=== PATIENT | female | born 1995 | race Caucasian/White ===

== ENCOUNTER 2021-10-16 13:56 | Emergency (ER) | payer BC, SELFPAY ==
--- NOTE | ~2021-10-16 | CT_ITS ---
EXAMINATION: CT abdomen pelvis w con DATE: 10/16/2021 15:54 INDICATION: epigastric pain, nausea TECHNIQUE: Computed tomography (CT) of the abdomen and pelvis was performed with 100 mL Omnipaque-350 intravenous contrast. Automated exposure control and iterative reconstruction technique were employe d. The dose-length product was 973.89 mGy-cm. COMPARISON: None. FINDINGS: Lower thorax: Minimal dependent atelectasis. Liver: Normal. Biliary/Gallbladder: Mild gallbladder wall edema and minimal pericholecystic fluid. No gallstones det ected. No bile duct dilation. Pancreas: No mass or duct dilation. Spleen: Normal. Adrenals:No mass. Kidneys: No mass, stone, or hydronephrosis. GI tract: Mild antral wall edema as can be seen with gastritis. No small or large bowel dilation. Nor mal appendix. Mesentery/Peritoneum: No ascites, mass, or free air. Retroperitoneum: No mass. Pelvis: Pelvic organs are within normal limits. Soft Tissues: Soft tissues and body wall unremarkable. Bones: No acute osseous finding. IMPRESSION: Mild gallbladder wall edema and pericholecystic fluid could reflect acute cholecystitis in the approp riate clinical context. Mild gastritis. Reviewed, dictated and finalized at location K. IMPRESSION: Mild gallbladder wall edema and pericholecystic fluid could reflect acute adamaris cystitis in the appropriate clinical context. Mild gastritis.
[2021-10-16 14:04] VITALS: BP 118/80; PULSE 79; RESP 16; TEMP 36.5; O2SAT 98
[2021-10-16 14:27] LABS: Alanine Aminotransferase 42 U/L (6-35); Albumin Level 4.5 g/dL (3.5-5.1); Alkaline Phosphatase 79 U/L (38-126); Anion Gap 14 mmol/L (8-16); Aspartate Amino Transferase 36 U/L (14-36); Bilirubin,Total 1.1 mg/dL (0.2-1.3); Blood Urea Nitrogen 13 mg/dL (7-17); Calcium 9.3 mg/dL (8.4-10.2); Carbon Dioxide 27 mmol/L (22-30); Chloride 98 mmol/L (98-107); Estimated CRCL calculation 150 ml/min; Estimated Glomerular Filt Rate > 60; Glucose 120 mg/dL (65-110); Lipase 75 U/L (23-300); Potassium 3.7 mmol/L (3.4-5.0); Sodium 139 mmol/L (137-145)
--- NOTE | 2021-10-16 14:31 | ED.ABDPAIN ---
HPI - Abdominal Pain General Chief Complaint: Abdominal Pain Stated Complaint: abd pain Time Seen by Provider: 10/16/21 14:08 Source: patient Mode of arrival: ambulatory Limitations: no limitations History of Present Illness HPI narrative: Patient is a 25-year-old female who presents the ED with report of abdominal pain. Patient reports having pain from her umbilical region to her epigastric region that began around noon today and has persisted. She reports having similar pain last Sunday which lasted for approximately 48 hours before resolving. Patient has not tried anything for pain today. She does report nausea, but denies vomiting, diarrhea, constipation, dysuria, hematuria, fevers. Related Data Allergies Allergy/AdvReac Type Severity Reaction Status Date / Time No Known Allergies Allergy Verified 10/16/21 13:57 Review of Systems Review of Systems: CONSTITUTIONAL: Denies fever, chills, or sweats. CARDIOVASCULAR: Denies chest pain. RESPIRATORY: Denies cough or dyspnea. GASTROINTESTINAL: Reports upper abdominal pain, nausea. Denies constipation, vomiting, or diarrhea. GENITOURINARY: Denies dysuria or hematuria. All systems reviewed & are unremarkable except as noted in HPI and below PMFSH Past Medical History Medical History No pertinent past medical history Surgical History Surgical History (Updated 10/16/21 @ 14:32 by Dixie George PA-C) No pertinent past surgical history Social History Social History (Updated 10/16/21 @ 14:32 by Dixie George PA-C) Smoking status: Never smoker Exam Narrative: GENERAL: Well appearing, obese, non-toxic, in no acute distress. HEAD: Normocephalic, atraumatic. NECK: Supple. No adenopathy, no masses. RESPIRATORY: Airway patent, respirations nonlabored. Clear to auscultation bilaterally, no rales, rhonchi, wheezing. CARDIOVASCULAR: Regular rate and rhythm without murmurs, rubs, or gallops. Peripheral pulses 2+ and equal bilaterally. ABDOMINAL: Soft, mild tenderness to deep palpation in epigastric region. No focal RUQ or lower abdominal tenderness. Nondistended, no hepatosplenomegaly. Normoactive BS. MUSCULOSKELETAL: Moves all extremities. Strength/ROM intact without gross deformities. SKIN: Warm, dry, normal color. No rashes. NEURO: A&O X3. Speech clear. Cranial nerves II-XII grossly intact. Steady gait. No ataxic movements. PSYCHIATRIC: Appropriate mood and affect. Normal interaction. Course Consultations Consultation #1: Discussed case with Dr. Nuñez, Gen Surgery, advised patient can be discharged home with abx, pain medication and f/u in office. Date: 10/16/21 Vital Signs Vital signs: Vital Signs Temperature 97.7 F 10/16/21 14:04 Pulse Rate 79 10/16/21 14:04 Respiratory Rate 16 10/16/21 14:04 Blood Pressure 118/80 10/16/21 14:04 Pulse Oximetry 98 10/16/21 14:04 Temperature 97.7 F 10/16/21 14:04 Pulse Rate 79 10/16/21 14:04 Respiratory Rate 16 10/16/21 14:04 Blood Pressure 118/80 10/16/21 14:04 Pulse Oximetry 98 10/16/21 14:04 MDM - Abdominal Pain MDM Narrative Medical decision making narrative: Patient presented to ED with several hour history of epigastric abdominal pain. Vital signs stable upon arrival. Afebrile. No leukocytosis - WBC 9.5, no anemia. CMP relatively unremarkable. LFTs WNL. UA suspicious for infection with trace leuk esterase, 7-9 WBC, 2+ bacteria. Moderate squamous cells, could be contamination, but will send for culture. Patient w/o urinary symptoms. CT scan of ABD/pelvis showing findings possibly indicating acute cholecystitis, mild wall edema, minimal pericholecystic fluid, no gallstones. Patient feeling better after IV Tylenol, not having much further pain or tenderness on exam. I discussed case with Dr. Nuñez, general surgery, who advised patient could be discharged home with pain medicine and antibiotics and close follo
[2021-10-16 14:44] LABS: Appearance Urine Slightly Cloudy (Clear); Bilirubin Urine 1+ (Negative); Color Urine Yellow (Yellow); Glucose Urine UA Negative (Negative); Ketones Urine 2+ mg/dL (Negative); Leukocyte Esterase Ur Trace LEU/UL (Negative); Nitrate Urine Negative (Negative); Protein Urine Trace mg/dL (Negative)
[2021-10-16 14:45] LABS: Basophils Percent Auto 0.4 % (0.2-1.2); Eosinophils Absolute Auto 0.2 K/mm3 (0-0.3); Eosinophils Percent Auto 2.4 % (0-4.4); Hematocrit 43.2 % (37.0-47.0); Hemoglobin 13.2 g/dL (12.0-15.0); Immature Granulocyte Absolute 0.03 K/mm3 (0.00-0.031); Immature Granulocyte Percent A 0.3 % (0-0.5); Lymphocytes Percent Auto 27.5 % (18.3-44.2); Mean Corpuscular HGB Conc 30.6 g/dl (32-36); Mean Corpuscular Hemoglobin 29.3 pg (26-34); Mean Platelet Volume 10.9 fl (7.4-10.4); Monocytes Absolute Auto 0.7 K/mm3 (0.1-0.6); Monocytes Percent Auto 7.7 % (2.6-8.5); Neutrophils Absolute Auto 5.8 K/mm3 (1.3-6.7); Neutrophils Percent Auto 61.7 % (45.5-73.1); Platelet Count Result 273 k/mm3 (150-375); Red Cell Distribution Width 13.4 % (11.5-14.5); White Blood Count 9.5 K/mm3 (4.5-10.0)
[2021-10-16 14:50] LABS: Add Urine Microscopic? YES; Blood Urine Trace-Intact (Negative)
[2021-10-16 14:53] LABS: Squamous Epithelial Cell Urine Moderate /hpf (Few)
[2021-10-16 14:54] LABS: Bacteria Urine 2+ /hpf
[2021-10-16 14:55] LABS: RBC Urine 0-2 /hpf (0-2)
[2021-10-16] MEDS: SODIUM CHLORIDE 0.9% IV 1,000 ML 999 ML IV CONT (15:33)
[2021-10-16] MEDS: ONDANSETRON INJ 4 MG/2 ML VIAL IV PUSH (15:34)
[2021-10-16 18:08] VITALS: BP 142/76; PULSE 86; RESP 18; O2SAT 98
== END 2021-10-16 18:19 | disposition home or self-care (01) ==
PROVIDERS: Physician Assistant; Emergency Provider Emergency Medicine
DX: K81.0 Acute cholecystitis (principal); R82.998 Other abnormal findings in urine
CPT/HCPCS: 36415; 74177; 80053; 81001; 81025; 83690; 85025; 87086; 87088; 96365; 96375; 99284; J0131; J2405; J7030; Q9967

== ENCOUNTER 2022-02-15 12:06 | Outpatient (CLI) | payer OTHER, SELFPAY ==
[2022-02-15 12:40] LABS: Alanine Aminotransferase 22 U/L (6-35); Albumin Level 4.7 g/dL (3.5-5.1); Alkaline Phosphatase 69 U/L (38-126); Amylase 56 U/L (30-110); Aspartate Amino Transferase 27 U/L (14-36); Bilirubin,Total 1.3 mg/dL (0.2-1.3); Lipase 40 U/L (23-300)
== END 2022-02-15 12:07 | disposition home or self-care (01) ==
PROVIDERS: Visit Provider Surgery
DX: K80.10 Calculus of gallbladder with chronic cholecystitis without obstruction (principal); Z01.818 Encounter for other preprocedural examination
CPT/HCPCS: 36415; 80076; 82150; 83690; 86850; 86900; 86901

== ENCOUNTER 2022-02-24 02:30 | Day surgery (SDC) | payer OTHER, SELFPAY ==
[2022-02-10 12:30] VITALS: BMI 30.4
--- NOTE | 2022-02-10 12:34 | PC.NURSE ---
Report to the Outpatient Waiting Room, entrance under the green pavilion located off [facility], at time 6:00 on date 02/24/22. Planned Procedure Time: 7:30. Time changes happen often and if your time is changed the preop area will call you the afternoon before. - You and your visitor will be asked to self-screen and do not enter if you have any COVID symptoms. - Only one visitor is requested with a max of two and NO children visitors are allowed at this time. - The patient visitor may be requested to leave or wait in car when not with patient due to distancing restrictions. - A mask is REQUIRED within the hospital. Patients may have clear liquids (water, carbonated beverages, clear teas, apple juice) until 3 hours prior to surgery (4:30) with a maximum of 20 ounces. - No food from midnight until time of surgery Take the following medications with a SIP of water the morning of surgery: N/A Medications to discontinue per physician: N/A Date to take last dose: N/A Please no make-up, nail kyrgyz, hairspray, perfume, deodorant, or body powder the day of surgery. No jewelry (including any body piercings) or valuables the day of surgery, leave them at home. Please take a shower or bath the night before, or the morning of, surgery with an antibacterial soap (HIBICLENS). Wear comfortable, loose fitting clothing. - Jewelry must be removed prior to entering the operating room. Rings and piercings that are not removed may be cut off. - The hospital will not accept responsibility for valuables. - Please leave all valuables, including medications, at home the day of surgery. If you are going home after surgery, a licensed school boat driver must drive you home. - NO public transportation without another adult if you receive anesthesia. - We recommend that an adult stay with you for 24 hours following discharge. - We also recommend that you do not drive, make important decision, drink alcoholic beverages, or take any drugs that were not prescribed by your health care provider for at least 24 hours after your discharge time. Follow any additional instructions given to you from your surgeon. If you or anyone in your household have experienced Covid symptoms in the past week, please notify your surgeon or the nurse liaison at the phone number below for possible testing. Telephone instructions given to PT - CYNTHIA SCHULTZ and asked if any additional questions and then verbalized understanding. Patient advised to call surgeon office or pre surgery nurse liaison [phone] if any additional questions.
[2022-02-24] VITALS (10 sets, daily range): BP systolic 109–127; BP diastolic 65–86; PULSE 62–82; RESP 12–19; TEMP 36.3–36.4; O2SAT 99–100
[2022-02-24] MEDS: ACETAMINOPHEN 500 MG TABLET 1000 MG PO (06:45)
[2022-02-24] MEDS: LACTATED RINGERS 1,000 ML 30 ML IV CONT ×2 (06:47→08:42)
[2022-02-24] MEDS: KETOROLAC 15 MG/ML VIAL (*BKC) IV PUSH (06:47)
--- NOTE | 2022-02-24 06:47 | P.PNAN_ITS ---
Anes - Initial Pre Proc Eval Procedure: Operation Date: 02/24/22 07:30 Proposed Procedures p Robotic Assisted Cholecystectomy - Carley Nuñez MD Date/Time: 02/24/22 06:47 Surgeon: Carley Nuñez MD Pre Op Diagnosis: cholecystitis with stones Patient Data Age: 26 Gender: F Height: 1.73 m Weight: 90.72 kg Allergies Allergy/AdvReac Type Severity Reaction Status Date / Time No Known Allergies Allergy Verified 02/10/22 12:30 Home Medications Medication Instructions Recorded Confirmed Type No Home Medications 02/10/22 02/10/22 History Patient hx anesthesia problems: none Family hx anesthesia problems: none Results Review: All pre-operative results and documents have been reviewed as part of the pre- operative evaluation. [facility] Past Medical History Medical History (Updated 02/24/22 @ 06:47 by Sukumar Rojo MD) No pertinent past medical history Obesity Surgical History Surgical History No pertinent past surgical history Social History Social History Smoking status: Never smoker Alcohol intake: never Substance use: never Substance use type: does not use Living arrangements: with friend(s) Spiritual care concerns: No Anes - Eval Final PreProcedure Day of Procedure 02/24/22 06:47 Patient weight: obese Heart: regular rate and rhythm Lungs: clear to auscultation Airway: Mallampati scale class II Neurological: alert and oriented Last oral intake: >/= 8 hours ASA classification: II Emergent: no Anesthetic plan: proceed Anesthesia type and monitoring: general ETT and standard monitoring Results Review: All pre-operative results and documents have been reviewed as part of the pre- operative evaluation. Informed Consent: The patient's anesthetic plan and its attendant risks and benefits were discussed with the patient/family/POA. Questions were solicited and answers provided to the satisfaction of the patient/family/POA.
[2022-02-24] MEDS: INDOCYANINE GREEN 25 MG VIAL IV PUSH (06:50)
--- NOTE | 2022-02-24 07:20 | PM.IMHP ---
H&P: HPI History of Present Illness Date/Time: 02/24/22 07:20 Chief Complaint: cholecystitis c cholelithiasis Narrative: Palak is a 25 y/o female who presents to the office for evaluation of epigastric pain with associated nausea. She states she has been experiencing these symptoms intermittently for the past few months. Patient was seen at ED on 10/16/21. CT abd/pelvis was performed in the ED and revealed mild gallbladder wall edema and pericholecystic fluid could reflect acute cholecystitis in the appropriate clinical context. Patient states her pain has improved since being seen in the ED. She is still taking the prescribed pain medication and antibiotics. She has been following a low fat diet as directed. Review of Systems Review of Systems: All systems reviewed & are unremarkable except as noted in HPI and below PMFSH Past Medical History Medical History No pertinent past medical history Obesity Surgical History Surgical History No pertinent past surgical history Social History Social History Smoking status: Never smoker Alcohol intake: never Substance use: never Substance use type: does not use Living arrangements: with friend(s) Spiritual care concerns: No Meds Home Medications and Allergies Home Medications Medication Instructions Recorded Confirmed Type No Home Medications 02/10/22 02/24/22 History Allergies Allergy/AdvReac Type Severity Reaction Status Date / Time No Known Allergies Allergy Verified 02/10/22 12:30 Vital Signs Vital Signs - 24 hr 02/24/22 06:10 Temperature 36.4 C L Pulse Rate 78 Respiratory Rate 18 Blood Pressure 127/66 Pulse Oximetry 100 Oxygen Delivery Room Air Exam Const: General: cooperative, comfortable and no acute distress Resp: Auscultation: clear to auscultation bilaterally Cardio: Rate: regular rate Rhythm: regular rhythm GI: GI Palp: No abdominal tenderness, Yes Soft to palpation and No Tenderness to palpation present (GI) Assessment and Plan Assessment and plan (1) Calculous cholecystitis: Code(s): K80.10 - Calculus of gallbladder with chronic cholecystitis without obstruction Status: Acute Assessment and Plan: OR for robotic assisted cholecystectomy
--- NOTE | 2022-02-24 07:25 | WPDHPUPDATE1 ---
History and Physical Update Update Date/Time: 02/24/22 07:25 History and Physical has been reviewed, including an updated exam of the patient. There are NO changes in the patient's condition. Risks, benefits, and alternatives have been discussed and questions answered. Patient agrees to proceed with procedure.
[2022-02-24] MEDS: ceFAZolin 2 GM/D5W 50 ML 2 GM/50 ML BAG IVPB (07:30)
[2022-02-24] MEDS: BUPIVACAINE/EPINEPHRINE 0.5% 30 ML VIAL INFILTRATE (08:24)
--- NOTE | 2022-02-24 08:35 | P.OP_ITS ---
Procedure Note - Detailed Date of Procedure 02/24/22 Pre-op Diagnosis cholecystitis with stones Post-op Diagnosis Same Procedure Performed Robotic assisted cholecystectomy Surgeon Carley Nuñez MD Anesthesia General Indications 26-year-old female presenting to the office status post ED visit for acute cholecystitis, cholelithiasis. Patient to be set up for interval cholecystectomy Findings moderate cholecystitis Description of Procedure The patient was taken to the operating room and placed in the supine position. After adequate induction of general anesthesia, the patient was prepped and draped in the normal sterile fashion. A time-out was then done to verify the patient's identity, as well as the procedure being performed. I began by making a 8 mm incision in the periumbilical region. A Veress needle was then placed in the peritoneal cavity and CO2 gas was insufflated. After adequate pneumoperitoneum was achieved, the Veress needle was removed and a 8 mm Optiview trocar was placed under direct visualization. Once into the abdominal cavity, the introducer was removed and the laparoscope was placed through this trocar site. Under direct visualization, I placed a further 12 mm port in the left mid abdomen and 2 8 mm ports in the right mid abdomen. The robot was then docked to these ports sites. I then went to the console. The gallbladder was then identified and noted to be moderately inflamed. I was able to place a grasper at the dome of the gallbladder and this was retracted up and over the liver. A 2nd retractor was used to grasp the infundibulum and retracted laterally. This allowed visualization and dissection of the triangle of Calot. There were some omental adhesions to the gallbladder and these were taken down with the cautery. I then began dissection around the triangle Calot. I first identified the cystic duct, I was able to visualize the entirety of the duct from its proximal insertion into the gallbladder 2 at the distal junction with the common hepati c/common bile duct junction. I did use the firefly visualization at this point to confirm the anatomy. The proximal cystic duct was then further skeletonized, clipped, and transected. Next I visualized the cystic artery. Again the structure was skeletonized, clipped, and transected. I then again used firefly to confirm anatomy and no aberrant anatomy was noted. I then used the Bovie cautery to take down the peritoneal attachments of the gallbladder off the liver bed. Once the gallbladder specimen was completely detached, an Endo pouch was placed through the 12 mm port site and the gallbladder specimen was placed in the endo-pouch and subsequently removed. I then re-examined the right upper quadrant. Hemostasis was noted in the liver bed and the clips were noted to be in good position on both the duct and the artery. No other pathology was seen in the right upper quadrant. All instruments were then removed and the robot was undocked. I then closed the 12 incision at the fascial level using a Derrick cone and 0 Vicryl suture under direct visualization. The abdomen was then desufflated and all ports were removed. All port sites were then closed with 4- 0 Monocryl subcuticular suture. Dermabond was placed on each was wound. The patient tolerated the procedure well and was extubated in the operating room postop. The patient will now be transferred to the recovery room in stable condition. Estimated Blood Loss 5 Drains No Packing No Pathology Yes Complications No immediate complications Condition Stable Disposition PACU [facility] Billing Surgery - Charge Forward: Surgery Billing
[2022-02-24] MEDS: ONDANSETRON INJ 4 MG/2 ML VIAL IV PUSH (09:09)
[2022-02-24] MEDS: fentaNYL CITRATE INJ (*CRX) 100 MCG/2 ML VIAL 25 MCG IV PUSH ×2 (09:22→09:25)
[2022-02-24] MEDS: diphenhydrAMINE HCl INJ 50 MG/ML VIAL 25 MG IV PUSH (10:00)
[2022-02-24] MEDS: SCOPOLAMINE 1.5 MG PATCH TRANSDERM (10:03)
[2022-02-24] MEDS: oxyCODONE HCL (*CRX) 5 MG TAB IR PO (10:14)
== END 2022-02-24 10:45 | disposition home or self-care (01) ==
PROVIDERS: Visit Provider Surgery
PROC: 0FT44ZZ Resection of Gallbladder, Percutaneous Endoscopic Approach (ICD-10-PCS; CPT 47562; principal; 2022-02-24 07:30)
DX: K80.10 Calculus of gallbladder with chronic cholecystitis without obstruction (principal); E66.9 Obesity, unspecified; Z68.30 Body mass index [BMI] 30.0-30.9, adult
CPT/HCPCS: 47562; 88304; A9270; J0690; J1100; J1200; J1885; J2250; J2405; J2704; J2710; J3010; J7030; J7120